=== PATIENT | female | born 1950 | race Caucasian/White ===

== ENCOUNTER 2016-12-25 19:34 | Emergency (ER) | payer OTHER ==
[~2016-12-25] VITALS: Ht 165.1 cm; Wt 89.4 kg
[~2016-12-25 19:34] MED LIST: CHILD ASPIRIN81 M1 PO; HYDROCHLOROTH12.5 M1 PO; OMEPRAZOLE40 M1 PO; SIMVASTATIN 40 MG TA PO; SIMVASTATIN40 MG PO; ULTRAM50 MG PO
[2016-12-25 20:18] LABS: EOSINOPHIL (%) 0.3 % (0-5); IMMATURE GRANULOCYTE (%) 3.6 % (0.0-0.7); IMMATURE GRANULOCYTE COUNT 0.5 K/uL; INSTRUMENT ABS NEUTROPHIL CT 9.7 K/uL; LYMPHOCYTE COUNT 3.6 K/uL (1.0-2.8); MCH 30.3 PG (29.0-34.0); MCHC 33.8 G/DL (30.0-36.0); MCV 89.7 FL (83-99); MONOCYTE (%) 6.3 % (3-12); MONOCYTE COUNT 0.9 K/uL (0-0.8); NEUTROPHIL (%) 65.6 % (45-76); NEUTROPHIL COUNT 9.7 K/uL (1.8-6.4); PLATELET COUNT 379 K/uL (156-360); RBC DIS.WIDTH-CV 12.9 % (11.8-14.6); RBC DIS.WIDTH-SD 42.4 % (39-53); RED BLOOD COUNT 4.35 M/uL (3.80-5.20); WHITE BLOOD COUNT 14.8 K/uL (4.1-10.2)
[2016-12-25 20:25] LABS: CHLORIDE 102 mEq/L (99-109); POTASSIUM 3.9 mEq/L (3.7-5.4); SODIUM 142 mEq/L (136-147)
[2016-12-25 20:27] LABS: GLUCOSE 120 mg/dL (70-99)
[2016-12-25 20:29] LABS: ANION GAP 13 MEQ/L (2-14)
[2016-12-25 20:31] LABS: GFR ESTIMATE (CALCULATED) 59 mL/min/
[2016-12-25 20:32] LABS: UREA NITROGEN (BUN) 38 mg/dL (9-23)
[2016-12-25 20:37] LABS: TROP-I INTERPRETATION NEGATIVE; TROPONIN-I 0.02 ng/mL (0.0-0.30)
[2016-12-25 21:19] VITALS: BP 179/95
== END 2016-12-25 21:20 | disposition home or self-care (01) ==
LOC: EME 19:34
PROVIDERS: Emergency Medicine
DX: J06.9 Acute upper respiratory infection, unspecified (principal); E78.5 Hyperlipidemia, unspecified; I10 Essential (primary) hypertension; Z79.82 Long term (current) use of aspirin; Z87.891 Personal history of nicotine dependence
CPT/HCPCS: 71020; 80048; 84484; 85025; 99281; 99285